=== PATIENT | male | born 1970 | race Caucasian/White ===

== ENCOUNTER 2016-04-26 02:26 | Emergency (ER) | payer BC ==
[~2016-04-26] VITALS: Ht 180.3 cm; Wt 98.5 kg
[~2016-04-26 02:26] MED LIST: CENTRUM COMPLE1 EACH PO; FLONASE16 G1 BOTH NARES; HYDROCODON-ACE1 EAC7 PO; LEVBID0.375 MG PO; MIRALAX17 GM PO; VITAMIN D2000 INTUN PO
[2016-04-26] MEDS ORDERED: VICODIN 5-3001 EACH PO (05:07)
[2016-04-26] MEDS ORDERED: NORCO 5/3251 TABLET PO (05:08)
[2016-04-26 05:36] VITALS: BP 118/88
[2016-04-26] MEDS ORDERED: CARBAMAZEPINE200 M2 PO (05:36)
== END 2016-04-26 05:38 | disposition home or self-care (01) ==
LOC: EME 02:26
DX: G50.0 Trigeminal neuralgia (principal); R20.0 Anesthesia of skin; F17.200 Nicotine dependence, unspecified, uncomplicated
CPT/HCPCS: 99281; 99283; J3010